=== PATIENT | male | born 1965 | race Two or more races ===

== ENCOUNTER 2018-07-04 05:46 | Emergency (ER) | payer OTHER ==
[2018-07-04 05:59] VITALS: BP 132/97; PULSE 70; TEMP 98.2; BMI 27.4
--- NOTE | 2018-07-04 06:08 | PDOC ---
History of Present Illness - General Chief Complaint: Ear Problem Stated Complaint: BUG IN HIS EAR Time Seen by Provider: 07/04/18 06:06 - History of Present Illness Initial Comments: 07/04/18 06:08 59 years old no past medical history of woke up with sensation of bug in his ear. No other complaints. Past History - Past Medical History Allergies/Adverse Reactions: Allergies Allergy/AdvReac Type Severity Reaction Status Date / Time No Known Allergies Allergy Unverified 07/04/18 05:49 Home Medications: Ambulatory Orders NK [No Known Home Medication] 07/04/18 COPD: No - Suicide/Smoking/Psychosocial Hx Smoking History: Never smoked Review of Systems - Review of Systems Comments:: 07/04/18 06:09 ROS: A complete review of 10 out of 10 review of systems is taken and is negative apart from what is previously mentioned below and in the HPI. *Physical Exam - Vital Signs Last Vital Signs Temp Pulse Resp BP Pulse Ox 98.2 F 70 16 132/97 100 07/04/18 05:51 07/04/18 05:51 07/04/18 05:51 07/04/18 05:51 07/04/18 05:51 - Physical Exam Comments: 07/04/18 06:09 Vitals: Triage Vital signs reviewed General Appearance: no acute distress, well nourished well developed, Head: Atraumatic, Ears: Insect noted inside left ear canal Psych: normal mood, normal affect Medical Decision Making - Medical Decision Making 07/04/18 06:10 Hydroperoxide placed inside left ear canal insect crawled out and removed strict repeat evaluation no foreign body or remanants left in ear Findings, the need for follow-up and strict return instructions discussed with patient. *DC/Admit/Observation/Transfer Diagnosis at time of Disposition: Foreign body in ear Qualifiers: Encounter type: initial encounter Laterality: left Qualified Code(s): T16.2XXA - Foreign body in left ear, initial encounter - Discharge Dispostion Disposition: HOME Condition at time of disposition: Stable Decision to Admit order: No - Referrals Referrals: [facility] [place] [facility] [place] [Provider Group] - Patient Instructions Printed Discharge Instructions: DI for Removal of Foreign Body From Ear Additional Instructions: Follow up with your doctor this week. Return to ED for any concerns - Post Discharge Activity
== END 2018-07-04 06:11 | disposition home or self-care (01) ==
LOC: FER 05:46 → EDBD 05:46 → FER 06:11
DX: T16.2XXA Foreign body in left ear, initial encounter (principal)
CPT/HCPCS: 99281-25